=== PATIENT | female | born 1985 | race Caucasian/White ===

== ENCOUNTER 2022-04-13 09:51 | Outpatient (CLI) | payer BC, MEDICAID, SELFPAY ==
--- NOTE | 2022-04-13 10:08 | US_ITS ---
WS: [id number] THYROID ULTRASOUND HISTORY: ABNORMAL WEIGHT GAIN COMPARISON: None available. Right lobe: 1.8 cm x 2.7 cm x 5.6 cm (w x ap x l). Volume: 14.4 cm3. Enlarged and very heterogeneous nodular thyroid. No significant increased vascularity. No discrete we ll-formed nodule. The entire gland is nodular with echogenic septa throughout. Left lobe: 2.3 cm x 2.1 cm x 4.8 cm (w x ap x l). Volume: 12.3 cm3. Moderately enlarged heterogeneous, nodular thyroid. Mild increased vascularity. Echogenic septa throu ghout. Isthmus: 1.2 cm. US/US thyroid [id number] IMPRESSION: 1. Enlarged heterogeneous thyroid gland. 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 2. No discrete nodule.
== END 2022-04-13 09:52 | disposition home or self-care (01) ==
PROVIDERS: PCP Nurse Practitioner; Visit Provider Nurse Practitioner
DX: E04.1 Nontoxic single thyroid nodule (principal); E04.8 Other specified nontoxic goiter; R63.5 Abnormal weight gain
CPT/HCPCS: 76536

== ENCOUNTER → 2022-08-23 09:55 | Outpatient (BNVA) | payer BC, MEDICAID, SELFPAY | PROVIDERS: PCP Nurse Practitioner; Visit Provider Internal Medicine Rheumatology | DX: Z79.899 Other long term (current) drug therapy (principal); R76.8 Other specified abnormal immunological findings in serum; M19.90 Unspecified osteoarthritis, unspecified site; Z71.85 Encounter for immunization safety counseling; M25.50 Pain in unspecified joint | CPT/HCPCS: 36415; 80076; 81001; 82085; 82306; 82550; 82565; 82570; 84156; 85025; 86235 ==

== ENCOUNTER → 2022-10-04 13:29 | Outpatient (BNVA) | payer BC, MEDICAID, SELFPAY | PROVIDERS: PCP Family Medicine; Visit Provider Family Medicine | DX: E06.3 Autoimmune thyroiditis (principal); L68.0 Hirsutism | CPT/HCPCS: 80061; 82670; 83001; 83002; 83036; 84403; 84439; 84443 ==

== ENCOUNTER → 2022-11-15 14:12 | Outpatient (BNVA) | payer BC, MEDICAID, SELFPAY | PROVIDERS: PCP Family Medicine; Visit Provider Family Medicine | DX: E06.3 Autoimmune thyroiditis (principal); L68.0 Hirsutism; Z01.419 Encounter for gynecological examination (general) (routine) without abnormal findings | CPT/HCPCS: 80048; 84439; 84443; 88175 ==

== ENCOUNTER → 2022-12-16 11:19 | Outpatient (BNVA) | payer BC, MEDICAID, SELFPAY | PROVIDERS: PCP Family Medicine; Visit Provider Family Medicine | DX: E06.3 Autoimmune thyroiditis (principal) | CPT/HCPCS: 84432; 84439; 84443; 86376; 86800 ==

== ENCOUNTER → 2023-02-04 10:09 | Outpatient (BNVA) | payer BC, MEDICAID, SELFPAY | PROVIDERS: PCP Family Medicine; Visit Provider Family Medicine | DX: E06.3 Autoimmune thyroiditis (principal); L68.0 Hirsutism | CPT/HCPCS: 80048; 80076; 82565; 84439; 84443; 85025; 86140 ==

== ENCOUNTER → 2023-05-09 09:21 | Outpatient (BNVA) | payer BC, MEDICAID, SELFPAY | PROVIDERS: PCP Family Medicine; Visit Provider Family Medicine | DX: L68.0 Hirsutism (principal); E06.3 Autoimmune thyroiditis | CPT/HCPCS: 80048; 84439; 84443 ==

== ENCOUNTER → 2023-06-30 09:01 | Outpatient (BNVA) | payer BC, MEDICAID, SELFPAY | PROVIDERS: PCP Family Medicine; Visit Provider Family Medicine | DX: E06.3 Autoimmune thyroiditis (principal) | CPT/HCPCS: 80048; 84439; 84443 ==

== ENCOUNTER 2023-07-20 11:42 | Outpatient (CLI) | payer BC, MEDICAID, SELFPAY ==
[2023-07-20 12:59] LABS: Basophils # 0.1 10^3/uL (0.0-0.1); Eosinophils % 0.2 %; Hematocrit 45.1 % (36-47); Lymphocytes # 4.8 10^3/uL (0.8-4.8); Lymphocytes % 45.9 %; Mean Corpuscular HGB Conc 34.1 g/dL (30-55); Mean Corpuscular Hemoglobin 33.3 pg (27-33); Mean Corpuscular Volume 97.6 fl (85-98); Monocytes # 0.5 10^3/uL (0.2-0.9); Monocytes % 4.8 %; Neutrophils # 5.02 10^3/uL (1.8-7.7); Neutrophils % 47.7 %; Nucleated Red Blood Cells % 0 %; Platelet Count 308 10^3/cmm (157-399); Red Blood Count 4.62 10^6/uL (3.85-5.65); Red Cell Distribution Width 11.4 % (12.1-15.1); White Blood Count 10.49 10^3/uL (3.29-11.43)
[2023-07-20 13:30] LABS: Alanine Aminotransferase 13 U/L (0-33); Albumin Level 4.5 g/dL (3.5-5.2); Alkaline Phosphatase 74 U/L (35-105); Aspartate Amino Transferase 20 U/L (0-32); Globulin 3.3 g/dL (1.3-4.6); Glomerular Filtration Rate 93.6 mL/min (90-130); Thyroid Stimulating Hormone 7.02 uIU/mL (0.27-4.20); Total Bilirubin 0.3 mg/dL (0.15-1.2); Total Protein 7.8 g/dL (6.6-8.7)
[2023-07-20 20:32] LABS: Free T4 Free Thyroxine 1.08 ng/dL (0.82-1.77)
[2023-07-21 15:00] LABS: Anti-Nuclear Antibody Screen NEGATIVE (NEGATIVE)
== END 2023-07-20 11:43 | disposition home or self-care (01) ==
LOC: LAB 11:44
PROVIDERS: PCP Family Medicine; Visit Provider Internal Medicine Rheumatology
DX: Z79.899 Other long term (current) drug therapy (principal); M35.00 Sjogren syndrome, unspecified; M25.50 Pain in unspecified joint
CPT/HCPCS: 80076; 82565; 84439; 84443; 85025; 86036; 86038; 86140

== ENCOUNTER 2023-08-17 09:49 | Emergency (ER) | payer MEDICAID, SELFPAY ==
[2023-08-17] VITALS (8 sets, daily range): BP systolic 106–117; BP diastolic 75–89; PULSE 97–103; RESP 16; TEMP 36.7; O2SAT 92–98; BMI 19.5
--- NOTE | 2023-08-17 11:07 | ED_ITS ---
HPI - Abdominal Pain 2 General: Chief Complaint: Abdominal Pain Stated Complaint: right side abd pain Time Seen by Provider: 08/17/23 11:01 History of Present Illness: Patient presents to the ER with complaints of right lower quadrant abdominal pain for the past few days. Patient had nausea vomiting take she had a stomach bug for about the last week. Patient has 8 much in the last week. Patient denies any urinary tract or bowel issues currently. Patient states his pain is more sharp especially when she coughs or moves does not know anything makes the pain better besides lying still and not coughing. Patient states she still has her appendix. Review of Systems 2 General: Reports: 10 or more systems reviewed and unremarkable except in HPI and below PFSH ED 2 PFSH: Medical History Skin lesions, generalized Primary Sjogren's syndrome Greg's thyroiditis [id number] Immunization counseling High risk medication use SS-B antibody positive Positive CELSA (antinuclear antibody) Polyarthralgia Joint pain Surgical History H/O lithotripsy Family History Grandmother Cancer Breast Other Rheumatoid arthritis Denies family history of Lupus Social History Smoking and tobacco/nicotine status: current every day tobacco/nicotine user cigarettes Packs smoked per day: 1 Alcohol intake: current Alcohol intake frequency: holidays/special occasions only Physical Exam 2 Const: COMMON NORMALS: no acute distress, average body habitus, patient oriented x3, no limitations, healthy appearing, alert and well nourished HENMT: COMMON NORMALS: normocephalic, atraumatic, hearing grossly normal bilaterally, external ears normal, Normal external nose present, moist oral mucous membranes and oropharynx normal HEAD & SCALP: normocephalic and atraumatic NOSE: Normal external nose present EXTERNAL EAR: Yes external ears normal Neck/C-Spine: COMMON NORMALS: no JVD Chest: COMMONS NORMALS: normal inspection of the chest and normal palpation of entire chest wall Resp: COMMON NORMALS: normal respiratory effort, No retractions, No use of accessory muscles and clear to auscultation bilaterally AUSCULTATION: clear to auscultation bilaterally Cardio: COMMON NORMALS: no JVD, regular rate, regular rhythm, S1 normal heart sound present, S2 normal heart sound present, No gallops present (Cardio), No clicks present (Cardio), No murmurs present (Cardio) and No rub (Cardio) R ATE: regular rate RHYTHM: regular rhythm HEART SOUNDS: S1 normal heart sound present and S2 normal heart sound present GI: COMMON NORMALS: Normal to inspection, nondistended, normoactive bowel sounds present, Soft to palpation, No hepatosplenomegaly present and no masses; negative for non-tender (Mildly tender to palpate right lower quadrant) P ALPATION: Yes Soft to palpation and Yes No hepatosplenomegaly present Neuro: COMMON NORMALS: patient oriented x3 SENSORIUM/ORIENTATION: Yes alert Course 2 Vital Signs: Vital signs: Vital Signs Temperature 98.0 F 08/17/23 10:01 Pulse Rate 97 08/17/23 12:48 Respiratory Rate 16 08/17/23 13:49 Blood Pressure 107/75 08/17/23 12:00 Pulse Oximetry 98 08/17/23 12:48 Oxygen Delivery Me thod Room Air 08/17/23 12:48 MDM - Abdominal Pain Medical Decision Making Presents to the ER with right lower quadrant abdominal pain and nausea vomiting for the last several days. Patient had lab work and urine done included a CBC CMP lipase magnesium all of which was essentially benign and patient underwent a contrasted CT scan of the abdomen pelvis that did did not show any acute cause of pelvic pain other than possible mild enteritis. Patient be discharged home to follow-up with her PCP for further evaluation and treatment. Differential Diagnosis Likely abdominal pain; Unlikely acute appendicitis, calculus of kidney, constipation, diverticulitis, endometriosis, gastroenteritis, pancreatitis or small bowel obstruction Medical Records I reviewed the patient's medical records. Lab Data I reviewed the patient's lab results. 08/17/23 11:17 08/17/23 11:17 Labs/Radiology: Laboratory Results WBC 9.64 10^3/uL (3.29-11.43) 08/17/23 11:17 RBC 5.15 10^6/uL (3.85-5.65) 08/17/23 11:17 Hgb 17.20 g/dL (11.27-16.99) H 08/17/23 11:17 Hct 50.8 % (36-47) H 08/17/23 11:17 MCV 98.6 fl (85-98) H 08/17/23 11:17 MCH 33.4 pg (27-33) H 08/17/23 11:17 MCHC 33.9 g/dL (30-55) 08/17/23 11:17 RDW 11.6 % (12.1-15.1) L 08/17/23 11:17 Plt Count 244 10^3/cmm (157-399) 08/17/23 11:17 MPV 9.3 fL (7.4-10.4) 08/17/23 11:17 Neut % (Auto) 38.9 % 08/17/23 11:17 Lymph % (Auto) 54.1 % 08/17/23 11:17 [place] % (Auto) 5.8 % 08/17/23 11:17 Eos % (Auto) 0.3 % 08/17/23 11:17 Baso % (Auto) 0.8 % 08/17/23 11:17 Neut # (Auto) 3.74 10^3/uL (1.8-7.7) 08/17/23 11:17 Lymph # (Auto) 5.2 10^3/uL (0.8-4.8) H 08/17/23 11:17 [place] # (Auto) 0.6 10^3/uL (0.2-0.9) 08/17/23 11:17 Eos # (Auto) 0.0 10^3/uL (0.0-0.8) 08/17/23 11:17 Baso # (Auto) 0.1 10^3/uL (0.0-0.1) 08/17/23 11:17 Nucleated RBC % (auto) 0 % 08/17/23 11:17 Nucleated RBCs # 0.0 /100WBC 08/17/23 11:17 Sodium 137 mmol/L (136-145) 08/17/23 11:17 Potassium 4.8 mmol/L (3.5-5.1) 08/17/23 11:17 Chloride 99 mmol/L (98-107) 08/17/23 11:17 Carbon Dioxide 25 mmol/L (22-29) 08/17/23 11:17 Anion Gap 17.8 (5-19) 08/17/23 11:17 BUN 6 mg/dL (6-20) 08/17/23 11:17 Creatinine 0.8 mg/dL (0.5-0.9) 08/17/23 11:17 GFR Calculation 79.9 mL/min (90-130) L 08/17/23 11:17 Glucose 103 mg/dL (65-115) 08/17/23 11:17 Calculated Osmolality 282 mOsm/kg (285-295) L 08/17/23 11:17 Calcium 9.5 mg/dL (8.5-10.5) 08/17/23 11:17 Total Bilirubin 0.4 mg/dL (0.15-1.2) 08/17/23 11:17 AST 28 U/L (0-32) 08/17/23 11:17 ALT 15 U/L (0-33) 08/17/23 11:17 Alkaline Phosphatase 76 U/L (35-105) 08/17/23 11:17 Total Protein 8.0 g/dL (6.6-8.7) 08/17/23 11:17 Albumin 4.3 g/dL (3.5-5.2) 08/17/23 11:17 Globulin 3.7 g/dL (1.3-4.6) 08/17/23 11:17 Lipase 28 U/L (13-60) 08/17/23 11:17 HCG, Qual Negative (Negative) 08/17/23 11:17 Urine Color Yellow (Yellow) 08/17/23 11:12 Urine Appearance Clear (CLEAR) 08/17/23 11:12 Urine pH 7 (5-7) 08/17/23 11:12 Ur Specific [place] 1.010 (1.005-1.030) 08/17/23 11:12 Urine Protein Neg (Negative) 08/17/23 11:12 Urine Glucose (UA) Norm (Normal) 08/17/23 11:12 Urine Ketones Negative (Negative) 08/17/23 11:12 Urine Blood Neg (Negative) 08/17/23 11:12 Urine Nitrate Negative (Negative) 08/17/23 11:12 Urine Bilirubin Neg (Negative) 08/17/23 11:12 Urine Urobilinogen Norm mg/dL (Negative) 08/17/23 11:12 Ur Leukocyte Esterase Negative (Negative) 08/17/23 11:12 All radiology interpretation(s) finalized by discharge Discharge Plan Discharge Patient Disposition: Home Clinical Impression: Enteritis Condition: Stable Prescriptions: No Action cholecalciferol (vitamin D3) 50 mcg (2,000 unit) capsule 50 mcg PO DAILY multivitamin Tablet 1 tab PO DAILY hydroxychloroquine 200 mg tablet See Rx Instructions PO .COMPLEX Qty: 135 1RF Rx Instructions: Alternate taking 1 tab today then 2 tabs tomorrow. pilocarpine HCl 5 mg tablet 5 mg PO TID Qty: 90 3RF prednisone 20 mg tablet See Rx Instructions PO .COMPLEX PRN (Reason: joint pain flare) Qty: 30 1RF Rx Instructions: take 1 or 2 tab daily for 3-7 days as needed for arthritis flare pain Synthroid 100 mcg tablet See Rx Instructions .ROUTE .COMPLEX Rx Instructions: TAKE ONE TABLET BY MOUTH ON MONDAYS, WEDNESDAYS, FRIDAYS AND SUNDAYS Synthroid 88 mcg tablet See Rx Instructions .ROUTE .COMPLEX Rx Instructions: TAKE ONE TABLET (88MCG) BY MOUTH ON TUESDAYS, THURSDAYS, SATURDAYS spironolactone 100 mg tablet 100 mg PO QAM Discharge Orders: Discharge ED (Routine); Ordered 08/17/23 Ordered By: Víctor Merritt Referrals: Veronica Hugo DO [Primary Care Provider] - 1 week Patient Instructions: Enteritis (ED) Activity Restrictions/Additional Instructions: Please drink plenty of fluids as to keep being dehydrated and to flush her system out. Please take Tylenol and Motrin Coding Level of Care Code ED Screen [employer]ing Equipment Setter for Juan Francisco Plummer
[2023-08-17 11:23] LABS: Add Urine Microscopic? NO; Charge for UA Resulting for Rev
[2023-08-17 11:28] LABS: Basophils # 0.1 10^3/uL (0.0-0.1); Basophils % 0.8 %; Eosinophils % 0.3 %; Hematocrit 50.8 % (36-47); Lymphocytes # 5.2 10^3/uL (0.8-4.8); Lymphocytes % 54.1 %; Mean Corpuscular HGB Conc 33.9 g/dL (30-55); Mean Corpuscular Hemoglobin 33.4 pg (27-33); Mean Corpuscular Volume 98.6 fl (85-98); Mean Platelet Volume 9.3 fL (7.4-10.4); Monocytes # 0.6 10^3/uL (0.2-0.9); Monocytes % 5.8 %; Neutrophils # 3.74 10^3/uL (1.8-7.7); Neutrophils % 38.9 %; Nucleated Red Blood Cells % 0 %; Platelet Count 244 10^3/cmm (157-399); Red Blood Count 5.15 10^6/uL (3.85-5.65); Red Cell Distribution Width 11.6 % (12.1-15.1); White Blood Count 9.64 10^3/uL (3.29-11.43)
[2023-08-17 11:38] LABS: Bilirubin Urine Neg (Negative); Blood Urine Neg (Negative); Glucose Urine UA Norm (Normal); Ketones Urine Negative (Negative); Leukocyte Esterase Urine Negative (Negative); Nitrate Urine Negative (Negative); Protein Urine Neg (Negative); Urine Appearance Clear (CLEAR); Urine Color Yellow (Yellow); Urobilinogen Urine Norm (Negative); pH Urine 7 (5-7)
[2023-08-17 11:44] LABS: Alanine Aminotransferase 15 U/L (0-33); Albumin Level 4.3 g/dL (3.5-5.2); Alkaline Phosphatase 76 U/L (35-105); Anion Gap 17.8 (5-19); Aspartate Amino Transferase 28 U/L (0-32); Blood Urea Nitrogen 6 mg/dL (6-20); Calcium 9.5 mg/dL (8.5-10.5); Carbon Dioxide 25 mmol/L (22-29); Chloride 99 mmol/L (98-107); Globulin 3.7 g/dL (1.3-4.6); Glomerular Filtration Rate 79.9 mL/min (90-130); Glucose 103 mg/dL (65-115); HCG, Serum Qual Negative (Negative); Lipase 28 U/L (13-60); Osmolality Calculated 282 mOsm/kg (285-295); Potassium 4.8 mmol/L (3.5-5.1); Sodium 137 mmol/L (136-145); Total Bilirubin 0.4 mg/dL (0.15-1.2)
--- NOTE | 2023-08-17 11:46 | CT_ITS ---
WS: [id number] CT ABDOMEN AND PELVIS WITH CONTRAST HISTORY: rlq abd pain TECHNIQUE: Imaging performed of the abdomen and pelvis with IV contrast. Single phase imaging of the abdomen. Coronal and sagittal reformats are submitted. All CT scans at [facility] use at [address] one of these dose optimization techniques: automated exposure control; mA and/or kV adjustment per patient size (includes targeted exams where dose is matched to clinical indication); or iterative re construction. IV CONTRAST: Omnipaque 350; 100 mL IV. Oral contrast: No DLP: 286.02 mGy.cm COMPARISON: None available. Lower thorax: Lung bases are clear. Heart is normal size. No hiatal hernia. Liver/biliary system: Normal size liver. There are several calcifications in the RIGHT lobe of the li tommy. There is a benign in appearance but of uncertain etiology. May be from prior granulomatous disea se. There is also motion artifact from breathing distorting the soft tissues. Gallbladder: Poorly visualized gallbladder due to motion. Pancreas: Pancreatic head is poorly visualized due to motion artifact. No abnormality identified. Spleen: Normal size spleen. No mass or infarct. Adrenal glands: Normal. Right kidney: Motion artifact. No obstruction. Left kidney: Motion artifact. No obstruction. Aorta: Normal. Lymphadenopathy: None. Free fluid: None. GI tract: Normal appendix. No GI tract obstruction. There is very slight increased amount of fluid in the proximal small bowel. May represent a very mild enteritis. Abdominal wall: Unremarkable abdominal wall. No hernia. Pelvis: Normal anteverted uterus. No pelvic mass. No free fluid or adenopathy. Bones: Unremarkable. IMPRESSION: 1. Normal appendix. 2. Very slight increased amount of fluid in the small bowel may represent a very mild enteritis. The re is no obstructive pattern. 3. No free fluid or free air. 4. No renal obstruction.
[2023-08-17 11:54] LABS: Slide Review Slide Review Perform
[2023-08-17] MEDS: iohexol 350 mg/mL 500 mL Btl (per mL) IV (12:10)
== END 2023-08-17 13:50 | disposition home or self-care (01) ==
PROVIDERS: Emergency Provider Emergency Medicine; PCP Family Medicine
DX: K52.9 Noninfective gastroenteritis and colitis, unspecified (principal); F17.210 Nicotine dependence, cigarettes, uncomplicated
CPT/HCPCS: 36415; 74177; 80053; 81003; 83690; 84703; 85025; 99285; Q9967

== ENCOUNTER → 2023-08-24 09:18 | Outpatient (BNVA) | payer BC, SELFPAY | PROVIDERS: PCP Family Medicine; Visit Provider Nurse Practitioner Family | DX: E06.3 Autoimmune thyroiditis (principal) | CPT/HCPCS: 84439; 84443 ==

== ENCOUNTER → 2023-11-08 08:41 | Outpatient (BNVA) | payer BC, SELFPAY | PROVIDERS: PCP Family Medicine; Visit Provider Family Medicine | DX: E06.3 Autoimmune thyroiditis (principal) | CPT/HCPCS: 84439; 84443 ==

== ENCOUNTER → 2024-02-08 09:03 | Outpatient (BNVA) | payer BC, SELFPAY | PROVIDERS: PCP Family Medicine; Visit Provider Nurse Practitioner Family | DX: Z79.899 Other long term (current) drug therapy (principal); M35.00 Sjogren syndrome, unspecified | CPT/HCPCS: 80076; 82565; 84439; 84443; 85025; 85651; 86140 ==

== ENCOUNTER → 2024-05-18 09:02 | Outpatient (BNVA) | payer BC, SELFPAY | PROVIDERS: PCP Family Medicine; Visit Provider Internal Medicine | DX: E06.3 Autoimmune thyroiditis (principal) | CPT/HCPCS: 84439; 84443 ==

== ENCOUNTER → 2024-05-24 10:45 | Outpatient (BNVA) | payer BC, SELFPAY | PROVIDERS: PCP Family Medicine; Visit Provider Internal Medicine | DX: E16.2 Hypoglycemia, unspecified (principal) | CPT/HCPCS: 36415; 82533 ==

== ENCOUNTER → 2024-07-05 08:22 | Outpatient (BNVA) | payer BC, SELFPAY | PROVIDERS: PCP Family Medicine; Visit Provider Internal Medicine | DX: E07.9 Disorder of thyroid, unspecified (principal) | CPT/HCPCS: 84439; 84443 ==

== ENCOUNTER → 2024-09-19 14:20 | Outpatient (BNVA) | payer BC, SELFPAY | PROVIDERS: PCP Family Medicine; Visit Provider Internal Medicine Rheumatology | DX: Z79.899 Other long term (current) drug therapy (principal) | CPT/HCPCS: 36415; 80076; 82565; 85025; 85651; 86140 ==

== ENCOUNTER 2024-11-29 08:07 | Oncology outpatient (recurring) (ONCR) | payer BC, MEDICAID, SELFPAY ==
[2024-11-29] MEDS: cosyntropin 0.25 mg SDV IVP (09:15)
[2024-11-29 10:18] LABS: Cosyntropin Baseline 14.33 mcg/dL
[2024-11-29 10:34] LABS: Cosyntropin 30 Minute 16.25 mcg/dL
[2024-11-29 10:45] VITALS: BP 114/64; PULSE 54; O2SAT 96
[2024-11-29 12:15] LABS: Cosyntropin 1 Hour 16.67 mcg/dL
== END 2024-12-01 23:59 | disposition home or self-care (01) ==
PROVIDERS: PCP Family Medicine; Visit Provider Internal Medicine
DX: E06.3 Autoimmune thyroiditis (principal); E03.9 Hypothyroidism, unspecified
CPT/HCPCS: 36415; 82533; J0834

== ENCOUNTER → 2025-02-20 09:37 | Outpatient (BNVA) | payer BC, MEDICAID, SELFPAY | PROVIDERS: PCP Family Medicine; Visit Provider Nurse Practitioner Family | DX: E27.40 Unspecified adrenocortical insufficiency (principal); E16.2 Hypoglycemia, unspecified; E03.9 Hypothyroidism, unspecified; R55 Syncope and collapse; R53.83 Other fatigue; K59.00 Constipation, unspecified; E06.3 Autoimmune thyroiditis | CPT/HCPCS: 80053; 82533; 84439; 84443 ==

== ENCOUNTER 2025-04-12 11:21 | Outpatient (CLI) | payer BC, MEDICAID, SELFPAY ==
--- NOTE | 2025-04-12 11:45 | US_ITS ---
WS: [id number] INDICATION: Enlarged lymph nodes TECHNIQUE: Ultrasound soft tissue neck FINDINGS: Ultrasound soft tissue neck. Prominent bilateral cervical lymph nodes are noted some with an abnormal appearance with cortical thickening and partially replaced fatty hilum. Largest lymph nodes LEFT neck measure up to 2.3 cm. Recommend further evaluation with contrast-enhanced CT neck. US/US soft tissue head neck [id number] IMPRESSION: Numerous cervical lymph nodes some of which appear enlarged with an abnormal ap pearance measuring up to 2.3 cm. Recommend further evaluation with contrast-enh anced CT neck.
== END 2025-04-12 11:22 | disposition home or self-care (01) ==
LOC: RAD 11:23
PROVIDERS: PCP Family Medicine; Visit Provider Internal Medicine Rheumatology
DX: R59.9 Enlarged lymph nodes, unspecified (principal)
CPT/HCPCS: 76536

== ENCOUNTER 2025-05-09 09:55 | Outpatient (CLI) | payer BC, MEDICAID, SELFPAY | END 2025-05-09 09:56 | disposition home or self-care (01) | LOC: LAB 05-10 06:45 | PROVIDERS: PCP Family Medicine; Visit Provider Internal Medicine Rheumatology | DX: Z79.899 Other long term (current) drug therapy (principal) | CPT/HCPCS: 80076; 82565; 85025; 85651; 86140 ==

== ENCOUNTER 2025-05-21 09:56 | Outpatient (CLI) | payer BC, MEDICAID, SELFPAY ==
--- NOTE | 2025-05-21 10:00 | MM_ITS ---
WS: [id number] BILATERAL 3D TOMOSYNTHESIS DIGITAL SCREENING MAMMOGRAPHY WITH CAD CLINICAL INFORMATION: SCREENING HISTORY: Screening mammogram. No current complaints. COMPARISON: Baseline TECHNIQUE: Bilateral CC and MLO views. FINDINGS: The breasts are composed of heterogeneous fibroglandular density tissue, which can limit the detection of small underlying mass lesions. No suspicious mass, asymmetry, calcifications, or architectural distortion. No evidence of malignancy. MM/MM scr tomosynthesis [id number] IMPRESSION: DENSITY: The breasts are heterogeneously dense, which may obscure small masses. BI-RADS: 1 - Negative FOLLOW UP: 1 Year Follow-up Recommend return to annual screening mammography.
== END 2025-05-21 09:57 | disposition home or self-care (01) ==
LOC: MOBLMAM 09:58
PROVIDERS: PCP Family Medicine; Visit Provider Family Medicine
DX: Z12.31 Encounter for screening mammogram for malignant neoplasm of breast (principal); R92.333 Mammographic heterogeneous density, bilateral breasts; R92.323 Mammographic fibroglandular density, bilateral breasts
CPT/HCPCS: 77063; 77067

== ENCOUNTER 2025-05-23 13:00 | Oncology outpatient (recurring) (ONCR) | payer BC, MEDICAID, SELFPAY ==
[2025-05-15 16:19] LABS: Hematocrit 44.0 % (36-47); Hemoglobin 15.00 g/dL (11.27-16.99); Mean Corpuscular HGB Conc 34.1 g/dL (30-55); Mean Corpuscular Hemoglobin 33.1 pg (27-33); Mean Corpuscular Volume 97.1 fl (85-98); Nucleated Red Blood Cells % 0 %; Platelet Count 314 10^3/cmm (157-399); Red Blood Count 4.53 10^6/uL (3.85-5.65); White Blood Count 16.96 10^3/uL (3.29-11.43)
[2025-05-15 16:42] LABS: Alanine Aminotransferase 17 U/L (0-33); Albumin Level 4.3 g/dL (3.5-5.2); Alkaline Phosphatase 77 U/L (35-105); Anion Gap 15.9 (5-19); Aspartate Amino Transferase 26 U/L (0-32); Blood Urea Nitrogen 7 mg/dL (6-20); Calcium 9.3 mg/dL (8.5-10.5); Carbon Dioxide 28 mmol/L (22-29); Chloride 100 mmol/L (98-107); Ferritin 110 ng/mL (15-150); Globulin 3.0 g/dL (1.3-4.6); Glucose 89 mg/dL (65-115); Iron 81 ug/dL (37-145); Osmolality Calculated 287 mOsm/kg (285-295); Potassium 3.9 mmol/L (3.5-5.1); Sodium 140 mmol/L (136-145); Total Iron Binding Capacity 319 mcg/dl; Total Protein 7.3 g/dL (6.6-8.7); Unsaturated Iron Binding 238 ug/dL (112-347); Uric Acid 4.7 mg/dL (2.4-5.7)
[2025-05-15 16:43] LABS: Slide Review Slide Review Perform
[2025-05-15 16:55] LABS: Vitamin B12 959 pg/mL (232-1245)
[2025-05-16 08:34] LABS: PROTEIN, TOTAL 7.1 g/dL (6.1-8.1)
[2025-05-16 19:35] LABS: ALPHA 1 GLOBULIN 0.4 g/dL (0.2-0.3); ALPHA 2 GLOBULIN 0.9 g/dL (0.5-0.9); BETA 1 GLOBULIN 0.4 g/dL (0.4-0.6); BETA 2 GLOBULIN 0.4 g/dL (0.2-0.5)
--- NOTE | 2025-05-23 13:00 | CTR_ITS ---
PROCEDURE INFORMATION: Exam: CT Neck With Contrast Exam date and time: 05/23/2025 1:04 PM Age: 39 years old Clinical indication: Other: Lymphadenopathy; ; Additional info: Lymphadenopathy; Anemia; Sjogren syndrome TECHNIQUE: Imaging protocol: Computed tomography of the neck with contrast. Radiation optimization: All CT scans at this facility use at least one of these dose optimization techniques: automated exposure control; mA and/or kV adjustment per patient size (includes targeted exams where dose is matched to clinical indication); or iterative reconstruction. Contrast material: OMNI 350; Contrast volume: 75 ml; Contrast route: INTRAVENOUS (IV); COMPARISON: US soft tissue head neck [id number] 04/12/2025 11:45 AM RADIATION DOSE METRICS: Total DLP (mGy-cm): 132.51 FINDINGS: Paranasal sinuses: Mucosal disease of the right ethmoid air cells. Salivary glands: Heterogeneous bilateral parotid glands, likely related to chronic parotitis. Pharynx: Unremarkable. No significant tonsillar enlargement. Larynx: Unremarkable. Epiglottis is normal. Thyroid: Normal. No enlarged or calcified nodules. Trachea: Visualized trachea is unremarkable. Lungs: Mild emphysematous changes in the lung apices. Lymph nodes: Unremarkable. No lymphadenopathy. Bones/joints: Unremarkable. No acute fracture. Soft tissues: Unremarkable. No significant soft tissue swelling. CT/CT neck w con* [id number] IMPRESSION: 1. No suspicious lymphadenopathy. 2. Bilateral parotitis.
--- NOTE | 2025-05-23 13:00 | CTR_ITS ---
PROCEDURE INFORMATION: Exam: CT Chest With Contrast; Diagnostic Exam date and time: 05/23/2025 12:55 PM Age: 39 years old Clinical indication: Other: Lymphadenopathy; Additional info: Lymphadenopathy; Anemia; Sjogren syndrome TECHNIQUE: Imaging protocol: Diagnostic computed tomography of the chest with contrast. Radiation optimization: All CT scans at this facility use at least one of these dose optimization techniques: automated exposure control; mA and/or kV adjustment per patient size (includes targeted exams where dose is matched to clinical indication); or iterative reconstruction. Contrast material: OMNI 350; Contrast volume: 75 ml; Contrast route: INTRAVENOUS (IV); COMPARISON: CT abdomen pelvis w con* [id number] 08/17/2023 12:00 PM RADIATION DOSE METRICS: Total DLP (mGy-cm): 515.78 FINDINGS: Lungs: Unremarkable. No consolidation. No masses. Pleural spaces: Unremarkable. No pneumothorax. No pleural effusion. Heart: Unremarkable. No cardiomegaly. No pericardial effusion. Lymph nodes: Unremarkable. No enlarged lymph nodes. Vasculature: Unremarkable. No aortic aneurysm. Bones/joints: Unremarkable. No acute fracture. Soft tissues: Unremarkable. PROCEDURE INFORMATION: Exam: CT Abdomen And Pelvis With Contrast Exam date and time: 05/23/2025 12:55 PM Age: 39 years old Clinical indication: Other: Lymphadenopathy; Additional info: Lymphadenopathy; Anemia; Sjogren syndrome TECHNIQUE: Imaging protocol: Computed tomography of the abdomen and pelvis with contrast. Radiation optimization: All CT scans at this facility use at least one of these dose optimization techniques: automated exposure control; mA and/or kV adjustment per patient size (includes targeted exams where dose is matched to clinical indication); or iterative reconstruction. Contrast material: OMNI 350; Contrast volume: 75 ml; Contrast route: INTRAVENOUS (IV); COMPARISON: CT abdomen pelvis w con* [id number] 08/17/2023 12:00 PM RADIATION DOSE METRICS: Total DLP (mGy-cm): 515.78 FINDINGS: Liver: Coarse calcifications within the liver are stable. Gallbladder and biliary ducts: Normal. No calcified stones. No ductal dilation. Pancreas: Normal. No ductal dilation. Spleen: Normal. No splenomegaly. Adrenal glands: Normal. No mass. Kidneys and ureters: Normal. No hydronephrosis. Stomach and bowel: Unremarkable. No obstruction. No mucosal thickening. Appendix: No evidence of appendicitis. Intraperitoneal space: Unremarkable. No free air. No significant fluid collection. Vasculature: Unremarkable. No abdominal aortic aneurysm. Lymph nodes: Unremarkable. No enlarged lymph nodes. Urinary bladder: Unremarkable as visualized. Reproductive: Unremarkable as visualized. Bones/joints: Unremarkable. No acute fracture. Soft tissues: Unremarkable. CT/CT chest abdpel w/*[id number] IMPRESSION: No acute findings. IMPRESSION: No acute findings.
[2025-05-23] MEDS: iohexol 350 mg/mL 500 mL Btl (per mL) IV ×2 (13:13)
[2025-05-23] MEDS: iohexol 350 mg/mL 500 mL Btl (per mL) PO (13:13)
== END 2025-06-02 23:59 | disposition home or self-care (01) ==
LOC: RAD 05-24 → ONCMED 05-24 07:47
PROVIDERS: Internal Medicine; PCP Family Medicine; Visit Provider Internal Medicine
DX: R59.1 Generalized enlarged lymph nodes; D64.9 Anemia, unspecified; M35.00 Sjogren syndrome, unspecified; K11.20 Sialoadenitis, unspecified; J34.89 Other specified disorders of nose and nasal sinuses; J43.9 Emphysema, unspecified; K76.89 Other specified diseases of liver; Z53.9 Procedure and treatment not carried out, unspecified reason
CPT/HCPCS: 36415; 70491; 71260; 74177; 80053; 82232; 82607; 82728; 82746; 82784; 83010; 83540; 83550; 83615; 84155; 84165; 84550; 85025; 85045; 85651; 86140; 86334

== ENCOUNTER → 2025-07-01 13:57 | Outpatient (BNVA) | payer BC, MEDICAID, SELFPAY | PROVIDERS: PCP Family Medicine; Visit Provider Family Medicine | DX: E03.9 Hypothyroidism, unspecified (principal); E06.3 Autoimmune thyroiditis | CPT/HCPCS: 84439; 84443; 84480 ==